=== PATIENT | female | born 1995 | race African-American/Black ===

== ENCOUNTER 2017-10-09 23:28 | Emergency (ER) | payer MEDICAID, OTHER ==
[~2017-10-09] VITALS: Ht 160 cm; Wt 48.0 kg
[2017-10-10 02:17] LABS: BASOPHILS % 0.7 % (0.0-2.0); EOSINOPHILS % 1.3 % (0.0-5.0); HEMATOCRIT. 39.4 % (36.0-48.0); HEMOGLOBIN. 12.7 g/dL (12.0-16.0); LYMPHOCYTES % 37.3 % (20.0-50.0); MEAN CORPUSCULAR HEMOGLOBIN 24.8 pg (28.0-32.0); MEAN CORPUSCULAR VOLUME 76.7 fL (81.0-99.0); MEAN PLATELET VOLUME 8.1 fl (7.4-10.4); MONOCYTES % 4.3 % (2.0-8.0); NEUTROPHILS % 56.4 % (40.0-76.0); PLATELET 338 x1000/uL (130-400); RED BLOOD CELL COUNT 5.14 mill/uL (4.2-5.4); RED CELL DISTRIBUTION WIDTH 14.1 % (11.6-14.6)
[2017-10-10 02:21] LABS: CHLORIDE 109 mEq/L (98-107)
[2017-10-10 04:07] VITALS: BP 112/68
== END 2017-10-10 04:09 | disposition home or self-care (01) ==
LOC: ER 23:36
DX: R07.0 Pain in throat (principal); R11.10 Vomiting, unspecified; F12.10 Cannabis abuse, uncomplicated; Z98.890 Other specified postprocedural states
CPT/HCPCS: 36415; 70360; 80048; 81025; 85025; 99285

== ENCOUNTER 2018-02-17 17:19 | Emergency (ER) | payer MEDICAID ==
[~2018-02-17] VITALS: Ht 157.5 cm; Wt 55.0 kg
[2018-02-17 17:34] VITALS: BP 118/80
== END 2018-02-18 00:43 | disposition home or self-care (01) ==
LOC: ER 17:37
DX: B34.9 Viral infection, unspecified (principal); F17.210 Nicotine dependence, cigarettes, uncomplicated; F12.90 Cannabis use, unspecified, uncomplicated
CPT/HCPCS: 81025; 87070; 87430; 99284

== ENCOUNTER 2018-06-19 01:16 | Emergency (ER) | payer MEDICAID ==
[~2018-06-19] VITALS: Ht 165.1 cm; Wt 41.0 kg
[2018-06-19] MEDS ORDERED: IBUPROFEN 600MG TABLET PO ONE (02:00)
[2018-06-19 03:15] VITALS: BP 107/68
== END 2018-06-19 03:29 | disposition home or self-care (01) ==
LOC: ER 01:55
DX: R07.89 Other chest pain (principal); D64.9 Anemia, unspecified; F12.10 Cannabis abuse, uncomplicated; F17.200 Nicotine dependence, unspecified, uncomplicated; Z98.890 Other specified postprocedural states
CPT/HCPCS: 71045; 81025; 93005; 99283

== ENCOUNTER 2018-08-06 15:18 | Emergency (ER) | payer MEDICAID ==
[~2018-08-06] VITALS: Ht 165.1 cm; Wt 55.0 kg
[2018-08-06 15:35] VITALS: BP 104/80
== END 2018-08-06 16:49 | disposition home or self-care (01) ==
LOC: ER 15:18
DX: B34.9 Viral infection, unspecified (principal); J40 Bronchitis, not specified as acute or chronic
CPT/HCPCS: 99283; 99406

== ENCOUNTER 2020-04-17 15:42 | Emergency (ER) | payer MEDICAID ==
[~2020-04-17] VITALS: Ht 154.9 cm; Wt 46.0 kg
[2020-04-17] MEDS ORDERED: IBUPROFEN 600MG TABLET PO ONE (17:30)
[2020-04-17 17:51] VITALS: BP 128/78
== END 2020-04-17 18:30 | disposition home or self-care (01) ==
LOC: ER 15:42
DX: S91.312A Laceration without foreign body, left foot, initial encounter (principal); W25.XXXA Contact with sharp glass, initial encounter; R03.0 Elevated blood-pressure reading, without diagnosis of hypertension; Y93.89 Activity, other specified; Y92.89 Other specified places as the place of occurrence of the external cause
CPT/HCPCS: 73630; 99283

== ENCOUNTER 2021-02-20 13:13 | Emergency (ER) | payer MEDICAID, OTHER ==
[~2021-02-20] VITALS: Ht 147.3 cm; Wt 43.0 kg
[2021-02-20] MEDS ORDERED: ACETAMINOPHEN 325MG TABLET PO ONE (14:15)
[2021-02-20] MEDS ORDERED: ACET-2708 MT (16:27)
[2021-02-20 17:50] VITALS: BP 119/68
== END 2021-02-20 19:08 | disposition home or self-care (01) ==
LOC: ER 13:13
DX: T76.21XA Adult sexual abuse, suspected, initial encounter (principal); F17.200 Nicotine dependence, unspecified, uncomplicated; M54.2 Cervicalgia; Z13.9 Encounter for screening, unspecified; Z98.890 Other specified postprocedural states
CPT/HCPCS: 81025; 99282